=== PATIENT | male | born 1965 | race African-American/Black ===

== ENCOUNTER 2019-09-07 01:08 | Emergency (ER) | payer OTHER, SELFPAY ==
[2019-09-07 01:14] VITALS: BP 160/93; PULSE 72; RESP 18; TEMP 36.9; O2SAT 100
--- NOTE | 2019-09-07 01:41 | ED.BACK ---
HPI - Back Pain/Injury General Chief Complaint: Back Pain/Injury Stated Complaint: lumbar pain Time Seen by Provider: 09/07/19 01:36 Source: patient and RN notes reviewed Mode of arrival: ambulatory Limitations: no limitations History of Present Illness HPI Narrative: Pt is a 54 y/o male who presents to the ED with c/o lower left-sided back pain that radiates to his LLE which began at 1430 this afternoon. Pt states the pain began while he was at work. Pt denies any recent heavy lifting, falls, or trauma to the area which could be causing his pain. Pt reports taking Aleve to try to alleviate his pain, without any relief. He reports he has had similar episodes in the past due to a -related injury, but has not had a formal diagnosis. Pt denies pain anywhere else in his body. MD elicited complaint: back pain (lower left-sided) Pertinent past history: prior back pain Onset (ago): hour(s) (1430 this afternoon) Timing: constant Similar Symptoms Previously: Yes Location: left lower back Radiation: left upper leg Exacerbating factors: none Relieving factors: none (tried Aleve without relief of his symptoms) Context: other (no recent trauma, falls, or heavy lifting) Associated symptoms: denies other symptoms Related Data Home Medications Medication Instructions Recorded Confirmed albuterol sulfate INHALATION 08/18/19 amlodipine 08/18/19 aspirin 08/18/19 duloxetine [Cymbalta] mg PO 08/18/19 losartan 08/18/19 methocarbamol 750 mg PO DAILY 08/18/19 08/18/19 Allergies Allergy/AdvReac Type Severity Reaction Status Date / Time niacin Allergy Intermediate Itching Verified 08/18/19 10:56 Review of Systems Review of Systems: All systems reviewed & are unremarkable except as noted in HPI and below Constitutional: Constitutional: Denies other (pain anywhere else in his body) Musculoskeletal: Musculoskeletal: Reports back pain (lower left-sided back pain which radiates to his LLE) [facility] Past Medical History Medical History (Updated 09/07/19 @ 03:40 by Carlo Hong MD) Arthritis Asthma Hyperlipidemia Hypertension Social History Social History (Updated 09/07/19 @ 01:54 by Susan Gaitan) Smoking status: Never smoker Gender identity (if verbalized by the patient): Male Exam Narrative: Exam Narrative: Constitutional: Healthy appearing, no acute distress, well nourished. HENMT: Lips normal, moist mucous membranes. Eyes: Conjunctive normal, PERRL Resp: Normal respiratory effect, clear to auscultation bilaterally. Cardio: Regular rate, rhythm, no murmurs. GI: Soft, non-tender, normal bowel sounds. Back/Spine/Pelvis: Full ROM Skin: Normal color, dry skin, warm Neuro: Oriented x 3, alert, normal speech Extremities: Full ROM. Pain to lower back with left hip flexion. Psych: Mental status grossly normal, normal affect. Course Vital Signs Vital signs: Vital Signs Temperature 36.9 C 09/07/19 01:14 Pulse Rate 72 09/07/19 01:14 Respiratory Rate 18 09/07/19 01:14 Blood Pressure 160/93 H 09/07/19 01:14 Pulse Oximetry 100 09/07/19 01:14 Temperature 36.9 C 09/07/19 01:14 Pulse Rate 79 09/07/19 03:39 Respiratory Rate 18 09/07/19 03:39 Blood Pressure 145/82 H 09/07/19 03:39 Pulse Oximetry 99 09/07/19 03:39 MDM - Back Pain/Injury MDM Narrative Medical decision making narrative: This is the same as his chronic pain. He has no traumatic mechanism and no red flag symptoms to suggest more emergent causes requiring imaging. Differential Diagnosis Differential diagnosis: Likely sciatica and strain of lumbar region Medical Records Attestation: I reviewed the patient's medical records. Discharge Plan Discharge Clinical Impression: Sciatica Qualifiers: Laterality: left Qualified Code(s): M54.32 - Sciatica, left side Patient Disposition: Home, Self-Care Condition: Stable Instructions: Sciatica (ED) Prescriptions: New cyclobenzaprine 10 mg tablet 10 mg
[2019-09-07 02:08] VITALS: BP 152/91; PULSE 75; RESP 18; O2SAT 99
[2019-09-07] MEDS: KETOROLAC (*BKC) 60 MG/2 ML VIAL IM (02:50)
[2019-09-07 03:39] VITALS: BP 145/82; PULSE 79; RESP 18; O2SAT 99
--- NOTE | 2019-09-07 03:39 | PC.NURSE ---
this rn went into room to assess updated pain score. pt states well im not moving right now so. this rn states so right now you arent in any pain? pt states yes, but i know i will be if i try to get up and walk. notified.
== END 2019-09-07 03:57 | disposition home or self-care (01) ==
PROVIDERS: Emergency Provider Emergency Medicine
DX: M54.32 Sciatica, left side (principal); M19.90 Unspecified osteoarthritis, unspecified site; J45.909 Unspecified asthma, uncomplicated; E78.5 Hyperlipidemia, unspecified; I10 Essential (primary) hypertension
CPT/HCPCS: 96372; 99284; J1885; J3360

== ENCOUNTER 2020-03-03 15:03 | Outpatient (CLI) | payer OTHER, SELFPAY ==
--- NOTE | ~2020-03-03 | US_ITS ---
EXAMINATION:US venous doppler LE LT INDICATION:Left knee and calf pain TECHNIQUE: Multiple grayscale, color flow and Doppler images of the left lower extremity deep venous systems were obtained and reviewed. COMPARISON:No prior studies for comparison. FINDINGS: The common femoral, superficial femoral and popliteal veins demonstrate normal respiratory variation, augmentation and compressibility. Color flow is also seen within the posterior tibial, pe roneal, greater saphenous and profunda veins. IMPRESSION: 1: No lower extremity deep venous thrombosis. Reviewed, dictated and finalized at location A.
== END 2020-03-03 15:04 | disposition home or self-care (01) ==
PROVIDERS: Visit Provider Internal Medicine
DX: M25.562 Pain in left knee (principal)
CPT/HCPCS: 93971

== ENCOUNTER 2020-04-23 08:04 | Outpatient (CLI) | payer OTHER, SELFPAY ==
--- NOTE | ~2020-04-23 | MR_ITS ---
EXAMINATION: MR knee LT wo con DATE: 04/23/2020 08:52 INDICATION: Left knee pain. Left knee bursitis. TECHNIQUE: Magnetic resonance imaging (MRI) of the left knee was performed without intravenous contra st. Sequences included axial PD-weighted FS FSE, coronal PD-weighted FSE and PD-weighted FS FSE, sagi ttal PD-weighted FSE, and sagittal T2-weighted FS FSE. COMPARISON: None. FINDINGS: Medial compartment: Medial meniscus is normal. There is shallow partial-thickness cartilage loss of femoral condyle invol ving the lateral articular surface. Tibial cartilage is normal. There are marginal osteophytes. Lateral compartment: Lateral meniscus is normal. Lateral compartment cartilage is normal. Patellofemoral compartment: There is shallow partial-thickness cartilage loss of patellar medial facet and deep partial thickness cartilage loss of patellar median ridge. There is deep partial thickness cartilage loss of central t rochlea and shallow partial-thickness cartilage loss of medial and lateral trochlea. Marginal osteoph ytes are noted. Ligaments and tendons: The anterior and posterior cruciate ligaments are normal. Medial collateral ligament is normal. There are changes of prior sprain of fibular collateral ligament characterized increased signal intensity proximally. There is mild patellar tendinopathy. Fluid: There is a small knee joint effusion. There is trace fluid in a Banks's cyst. There is superficial in frapatellar bursitis with 3.7 x 2.4 x 0.9 cm fluid collection with fluid/fluid level. IMPRESSION: 1. Moderate chondrosis of patellofemoral compartment and mild chondrosis of medial compartment. 2. Small knee joint effusion. 3. Superficial infrapatellar bursitis. Reviewed, dictated and finalized at location A. IMPRESSION: 1. Moderate chondrosis of patellofemoral compartment and mild chondrosis of med ial compartment. 2. Small knee joint effusion. 3. Superficial infrapatellar bursitis.
== END 2020-04-23 08:05 | disposition home or self-care (01) ==
PROVIDERS: Visit Provider Internal Medicine
DX: M25.562 Pain in left knee (principal); M70.52 Other bursitis of knee, left knee; M25.462 Effusion, left knee
CPT/HCPCS: 73721

== ENCOUNTER 2024-02-11 13:25 | Outpatient (CLI) | payer OTHER, MEDICARE, SELFPAY ==
--- NOTE | ~2024-02-11 | XR_ITS ---
XR shoulder RT min 2V 02/11/2024 13:53 Indication: Right shoulder pain Procedure: 4 views right shoulder Comparison: No prior studies for comparison. Findings: There is irregular lucency of the glenoid process, suspicious for nondisplaced fracture. Th ere is mild osteoarthritis of the acromioclavicular joint. Impression: 1: Possible nondisplaced glenoid process fracture. Recommend correlation with CT of the shoulder. Reviewed, dictated and finalized at location B. Impression: 1: Possible nondisplaced glenoid process fracture. Recommend correlation with C T of the shoulder.
== END 2024-02-11 13:26 | disposition home or self-care (01) ==
PROVIDERS: PCP Nurse Practitioner Family; Visit Provider Orthopaedic Surgery
DX: R52 Pain, unspecified (principal)
CPT/HCPCS: 73030

== ENCOUNTER 2024-02-20 09:40 | Outpatient (CLI) | payer OTHER, MEDICARE, SELFPAY ==
--- NOTE | ~2024-02-20 | MR_ITS ---
MRI of the right shoulder Technique: Axial proton-density fat-sat images, coronal proton density fat-sat and T2 fat-sat images, and sagittal T1-weighted and T2 fat-sat images were acquired. Clinical History: Shoulder lesion, pain Findings: There is advanced AC joint degenerative change, with productive change of the acromion and distal clavicle. Subacromial spur present. Coracoclavicular, coracoacromial, and coracohumeral ligame nts are intact. There is high-grade bursal surface partial tearing of the posterior to central aspect of the distal s upraspinatus tendon, with the area of tearing measuring approximately 1.5 x 2.1 cm in extent. There i s probably focally full-thickness tearing in some areas of the lesion. Infraspinatus tendon is intact without definite partial or full-thickness tear. Subscapularis tendon is intact with mild tendinosis . Tendon of long head of the biceps is intact. No labral tear identified. Inferior glenohumeral ligament is intact. No degenerative change or effusion of the glenohumeral join t. No significant fluid distention of the subacromial/subdeltoid bursa. No muscle atrophy or edema. Impression: 1.5 x 2.1 cm area of high-grade bursal surface tearing of the distal supraspinatus tendon, as detaile d above, with probable focal full-thickness tearing involving some regions of the lesion. Advanced AC joint degenerative change. Reviewed, dictated and finalized at [facility]. Impression: 1.5 x 2.1 cm area of high-grade bursal surface tearing of the distal supraspina tus tendon, as detailed above, with probable focal full-thickness tearing invol ving some regions of the lesion. Advanced AC joint degenerative change.
== END 2024-02-20 09:41 ==
PROVIDERS: PCP Orthopaedic Surgery; Visit Provider Orthopaedic Surgery
DX: M19.011 Primary osteoarthritis, right shoulder (principal)
CPT/HCPCS: 73221

== ENCOUNTER 2024-06-08 07:41 | Outpatient (CLI) | payer OTHER, MEDICARE, SELFPAY ==
--- NOTE | 2024-06-08 07:55 | ECG_ITS ---
Test Date: 2024-06-08 08:18:38 Measurements Intervals [place] Rate: 73 P: 6 CO: 188 QRS: -26 QRSD: 88 T: 37 QT: 359 QTc: 396 Interpretive Statements SINUS RHYTHM BORDERLINE R WAVE PROGRESSION, ANTERIOR LEADS BORDERLINE T WAVE ABNORMALITY- INF/HIGH LAT LEADS BASELINE ARTIFACT- I, II, III, AVR, AVL, AVF, V1-V2, V4-V6 BORDERLINE ECG No previous ECG available for comparison Electronically Signed On 06-08-2024 08:41:[address] by Renato Neville D.O.
[2024-06-08 10:15] LABS: Anion Gap 12 mmol/L (4-12); Blood Urea Nitrogen 15 mg/dL (9-20); Calcium 9.6 mg/dL (8.4-10.2); Carbon Dioxide 30 mmol/L (22-30); Chloride 101 mmol/L (98-107); Estimated Glomerular Filt Rate > 60; Glucose 93 mg/dL (65-110); Potassium 3.5 mmol/L (3.4-5.0); Sodium 143 mmol/L (137-145)
== END 2024-06-08 07:42 | disposition home or self-care (01) ==
PROVIDERS: Anesthesiology; Visit Provider Orthopaedic Surgery
DX: E11.9 Type 2 diabetes mellitus without complications (principal); I10 Essential (primary) hypertension; Z01.818 Encounter for other preprocedural examination
CPT/HCPCS: 36415; 80048; 93005

== ENCOUNTER 2024-06-15 03:06 | Day surgery (SDC) | payer OTHER, MEDICARE, SELFPAY ==
[2024-06-05 08:58] VITALS: BMI 29.7
--- NOTE | 2024-06-05 09:07 | PC.NURSE ---
Report to the Outpatient Waiting Room, entrance under the green pavilion located off [facility], at time _0800_ on date _[id number]_. Planned Procedure Time: _1000_.? Time changes happen often and if your time is changed the preop area will call you the afternoon before. - You and your visitor will be asked to self-screen and do not enter if you have any COVID symptoms. Please call surgeon if you need to reschedule. - A mask is optional within the hospital at this time. Patients may have clear liquids (water, carbonated beverages, clear teas, apple juice) until 3 hours prior to surgery with a maximum of 20 ounces. - No food from midnight until time of surgery and no smoking Take only the following medications with a SIP of water on the morning of surgery: __Amlodipine, Duloxetine, Gabapentin and if needed may use Albuterol inhaler.____ DO NOT STOP ANY OF YOUR OTHER PRESCRIPTION MEDICATIONS PRIOR TO SURGERY EXCEPT THE FOLLOWING Medications to discontinue per physician ____Aspirin Date to take last qenh__[phone]___ Please no make-up, nail armenian, hairspray, perfume, deodorant, or body powder the day of surgery.? No jewelry (including any body piercings) or valuables the day of surgery, leave them at home.? Please take a shower or bath the night before, or the morning of, surgery with an antibacterial soap.? Wear comfortable, loose fitting clothing.? - Jewelry must be removed prior to entering the operating room.? Rings and piercings that are not removed may be cut off. - The hospital will not accept responsibility for valuables.? - Please leave all valuables, including medications, at home the day of surgery. If you are going home after surgery, a licensed entry level truck driver must drive you home.? - NO public transportation without another adult if you receive anesthesia. - We recommend that an adult stay with you for 24 hours following discharge. - We also recommend that you do not drive, make important decision, drink alcoholic beverages, or take any drugs that were not prescribed by your health care provider for at least 24 hours after your discharge time. Follow any additional instructions given to you from your surgeon. Telephone instructions given to _Adonis__and asked if any additional questions and then verbalized understanding. Patient advised to call surgeon office or pre surgery nurse liaison [phone] if any additional questions.
--- NOTE | 2024-06-11 07:41 | P.HP_ITS ---
H&P: HPI History of Present Illness Date/Time: 06/11/24 07:41 Chief Complaint: Patient has chronic shoulder pain right. He has failed conservative treatment and would like to consider surgical intervention. He has had anti-inflammatory medication prednisone pills, and cortisone injections, physical therapy, and time. He has pain with overhead motion is weak in abduction external rotation. He would like to proceed with arthroscopy shoulder open distal clavicle excision rotator cuff debridement repair. Review of Systems Musculoskeletal: Musculoskeletal: Reports arthralgias, Reports joint swelling and Reports stiffness [facility] Past Medical History Medical History Arthritis Asthma Hernia Hyperlipidemia Hypertension Trigger finger Surgical History Surgical History H/O knee surgery H/O shoulder surgery History of bunionectomy Family History Family History (Updated 05/26/24 @ 08:56 by Yana Paz CMA) Father Hypertension Hyperlipidemia Mother Diabetes mellitus Hypertension Heart disease CKD (chronic kidney disease) DVT (deep vein thrombosis) in Sibling Hypertension Heart disease Social History Social History (Updated 05/26/24 @ 08:43 by Thelma Treviño CMA) Smoking status: Never smoker Second hand tobacco smoke exposure: Yes Alcohol intake: current Substance use: current Substance use type: marijuana Other substance usage details: Daily Do You Feel Safe in your Home?: Yes Lack of Transportation: No Lack of Food: Never True Current Housing: I Have Housing Concerned About Future Housing: No Difficulty Paying Gas/Electric Bills: No Difficulty Paying for Meds: No Currently Unemployed: No Education: High School Diploma/GED Difficulty w/ Childcare or Family Care: No Living arrangements: with family Occupation/Education: retired Additional occupation/education comments: Retired [employer], [employer]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 Gender identity (if verbalized by the patient): Male Spiritual care concerns: No Meds Home Medications and Allergies Home Medications Medication Instructions Recorded Confirmed Type albuterol sulfate 90 mcg/actuation 2 inh inhalation QID PRN Dyspnea 08/18/19 06/05/24 History aerosol inhaler amlodipine 10 mg tablet 10 mg PO DAILY 08/18/19 06/05/24 History aspirin 81 mg chewable tablet 81 mg PO DAILY 08/18/19 06/05/24 History duloxetine 20 mg capsule,delayed 20 mg PO DAILY 08/18/19 06/05/24 History release (Cymbalta) gabapentin 100 mg capsule 100 mg PO BID 05/26/24 06/05/24 History empagliflozin 5 mg-metformin ER 2 tablet PO DAILY 06/05/24 06/05/24 History 1,000 mg tablet,extended release 24 hr (Synjardy XR) losartan 100 mg tablet 100 mg PO DAILY 06/05/24 06/05/24 History semaglutide 0.25 mg or 0.5 mg (2 0.25 mg subcut WEEKLY 06/05/24 06/05/24 History mg/3 mL) subcutaneous pen injector (Ozempic) tadalafil 20 mg tablet 20 mg PO WEEKLY 06/05/24 06/05/24 History Allergies Allergy/AdvReac Type Severity Reaction Status Date / Time niacin Allergy Intermediate Itching Verified 06/05/24 08:54 lisinopril AdvReac Intermediate Cough Verified 06/05/24 08:54 Exam Narrative: On exam he has difficulty raising his arm above the horizontal. He is weak in abduction external rotation and has give-way. Neurologically he is intact. He has pain and with impingement. Neurologically appears to be grossly intact. Radiology Reports: Comments: Patient: Adonis Busby MRI of the right shoulder Technique: Axial proton-density fat-sat images, coronal proton density fat-sat and T2 fat-sat images, and sagittal T1-weighted and T2 fat-sat images were acquired. Clinical History: Shoulder lesion, pain Findings: There is advanced AC joint degenerative change, with productive change of the acromion and distal clavicle. Subacromial spur present. Coracoclavicular, coracoacromial, and coracohumeral ligaments are intact. There is high-grade bursal surface partial tearing of the posterior to central aspect of the distal supraspinatus tendon, with the area of tearing measuring approximately 1.5 x 2.1 cm in extent. There is probably focally full-thickness tearing in some areas of the lesion. Infraspinatus tendon is intact without definite partial or full-thickness tear. Subscapularis tendon is intact with mild tendinosis. Tendon of long head of the biceps is intact. No labral tear identified. Inferior glenohumeral ligament is intact. No degenerative change or effusion of the glenohumeral joint. No significant fluid distention of the subacromial/subdeltoid bursa. No muscle atrophy or edema. Impression: 1.5 x 2.1 cm area of high-grade bursal s urface tearing of the distal sup raspinatus tendon, as detailed above, with probable focal full-thickness tearing involving some regions of the lesion. Advanced AC joint degenerative change. Reviewed, dictated and finalized at location M. Knee MRI 04/23/20 Shoulder X-Ray 02/11/24 Shoulder MRI 02/21/24 Assessment and Plan Assessment and plan (1) Rotator cuff tear, right: Code(s): M75.101 - Unspecified rotator cuff tear or rupture of right shoulder, not specified as traumatic Status: Acute Assessment and Plan: Patient has rotator cuff tear right and acromioclavicular arthritis. He has failed conservative treatment and would like to consider surgical intervention. I have discussed this with him at length risks benefits limitations and alternatives. Will proceed with arthroscopy shoulder open distal clavicle excision rotator cuff debridement repair proceed as indicated. (2) Acromioclavicular arthrosis: Code(s): M19.019 - Primary osteoarthritis, unspecified shoulder Status: Acute
[2024-06-15] VITALS (8 sets, daily range): BP systolic 127–143; BP diastolic 83–90; PULSE 70–92; RESP 16–20; TEMP 36–36.4; O2SAT 97–100; BMI 30.2
[2024-06-15 08:23] LABS: Glucose Point of Care 95 mg/dl (65-105)
[2024-06-15] MEDS: LACTATED RINGERS 1,000 ML 30 ML IV CONT ×2 (08:45→12:03)
[2024-06-15] MEDS: ACETAMINOPHEN 500 MG TABLET 1000 MG PO (08:45)
[2024-06-15] MEDS: KETOROLAC 15 MG/ML VIAL (*BKC) IV PUSH (08:45)
--- NOTE | 2024-06-15 09:21 | WPDHPUPDATE1 ---
History and Physical Update Update Date/Time: 06/15/24 09:21 History and Physical has been reviewed, including an updated exam of the patient. There are NO changes in the patient's condition. Risks, benefits, and alternatives have been discussed and questions answered. Patient agrees to proceed with procedure.
--- NOTE | 2024-06-15 10:04 | P.PNAN_ITS ---
Anes - Initial Pre Proc Eval Procedure: Operation Date: 06/15/24 10:00 Proposed Procedures p Right Shoulder Arthroscopy with Open Rotator Cuff Repair, Distal Clavicle Excision - Andi Pena MD Date/Time: 06/15/24 10:04 Surgeon: Andi Pena MD Pre Op Diagnosis: Right Rot Cuff Tear, AC Arthritis Patient Data Age: 59 Gender: M Height: 1.73 m Weight: 90.1 kg Last Vital Signs Temp 97.5 F L 06/15/24 08:30 Pulse 75 06/15/24 08:30 BP 127/83 06/15/24 08:30 Pulse Ox 100 06/15/24 08:30 O2 Del Method Room Air 06/15/24 08:30 Allergies Allergy/AdvReac Type Severity Reaction Status Date / Time niacin Allergy Intermediate Itching Verified 06/15/24 09:08 lisinopril AdvReac Intermediate Cough Verified 06/15/24 09:08 Home Medications Medication Instructions Recorded Confirmed Type albuterol sulfate 90 mcg/actuation 2 inh inhalation QID PRN Dyspnea 08/18/19 06/05/24 History aerosol inhaler amlodipine 10 mg tablet 10 mg PO DAILY 08/18/19 06/05/24 History aspirin 81 mg chewable tablet 81 mg PO DAILY 08/18/19 06/15/24 History duloxetine 20 mg capsule,delayed 20 mg PO DAILY 08/18/19 06/05/24 History release (Cymbalta) gabapentin 100 mg capsule 100 mg PO BID 05/26/24 06/05/24 History empagliflozin 5 mg-metformin ER 2 tablet PO DAILY 06/05/24 06/05/24 History 1,000 mg tablet,extended release 24 hr (Synjardy XR) losartan 100 mg tablet 100 mg PO DAILY 06/05/24 06/05/24 History semaglutide 0.25 mg or 0.5 mg (2 0.25 mg subcut WEEKLY 06/05/24 06/15/24 History mg/3 mL) subcutaneous pen injector (Ozempic) tadalafil 20 mg tablet 20 mg PO WEEKLY 06/05/24 06/15/24 History Laboratory Tests 06/15/24 08:17 POC Capillary Glucose 95 mg/dl (65-105) Patient hx anesthesia problems: none Family hx anesthesia problems: none Results Review: All pre-operative results and documents have been reviewed as part of the pre- operative evaluation. [facility] Past Medical History Medical History Arthritis Asthma Hernia Hyperlipidemia Hypertension Trigger finger Surgical History Surgical History H/O knee surgery H/O shoulder surgery History of bunionectomy Family History Family History Father Hypertension Hyperlipidemia Mother Diabetes mellitus Hypertension Heart disease CKD (chronic kidney disease) DVT (deep vein thrombosis) in Sibling Hypertension Heart disease Social History Social History (Updated 05/26/24 @ 08:43 by Thelma Treviño [facility]) Smoking status: Never smoker Second hand tobacco smoke exposure: Yes Alcohol intake: current Substance use: current Substance use type: marijuana Other substance usage details: Daily Do You Feel Safe in your Home?: Yes Lack of Transportation: No Lack of Food: Never True Current Housing: I Have Housing Concerned About Future Housing: No Difficulty Paying Gas/Electric Bills: No Difficulty Paying for Meds: No Currently Unemployed: No Education: High School Diploma/GED Difficulty w/ Childcare or Family Care: No Living arrangements: with family Occupation/Education: retired Additional occupation/education comments: Retired [employer], substitute crossing guard civilian Gender identity (if verbalized by the patient): Male Spiritual care concerns: No Anes - Eval Final PreProcedure Day of Procedure 06/15/24 10:04 Patient weight: overweight Heart: regular rate and rhythm Lungs: clear to auscultation Airway: Mallampati scale class II Neurological: alert and oriented Last oral intake: >/= 8 hours ASA classification: III Emergent: no Anesthetic plan: proceed Anesthesia type and monitoring: general ETT and standard monitoring Results Review: All pre-operative results and documents have been reviewed as part of the pre- operative evaluation. HTN, hyperlipidemia, EN on CPAP. Informed Consent: The patient's anesthetic plan and its attendant risks and benefits were discussed with the patient/family/POA. Questions were solicited and answers provided to the satisfaction of the patient/family/POA.
--- NOTE | 2024-06-15 10:17 | WPDANESPNB ---
Anes - Peripheral Nerve Block Date/Time: 06/15/24 10:17 I have discussed with the patient/family/POA the placement of a peripheral nerve block for post-operative pain management, including associated risks, benefits, complications, and side effects. Alternative methods of post-operative analgesia were detailed. Questions were solicited and answers provided to the satisfaction of the patient/family/POA. Time-Out: A pre-procedural Time-Out was completed immediately before starting the procedure and confirmed: Patient Identification, Site, Procedure, Patient Position and the Availability of Requisite Equipment. Clinical Indications: Acute post-operative pain management requested by the operative surgeon. Nerve Block Insertion Note Anes-nerve block: interscalene right Patient position: supine Skin prep: chlorhexidine Needle: 22 gauge, stimulating, insulated echogenic needle. Needle length: 80 mm Technique: ultrasound Injectate: other (Bupiv 0.5% 15 mls. ) Observations: tolerated well Complications: none Procedure start time:: 1010 Procedure end time:: 1014
[2024-06-15] MEDS: ceFAZolin 2 GM/D5W 50 ML 2 GM/50 ML BAG IVPB (10:37)
[2024-06-15] MEDS: LIDO 1%/EPINEPHRINE 1:100,000 20 ML VIAL INFILTRATE (10:55)
--- NOTE | 2024-06-15 11:34 | P.OP_ITS ---
Procedure Note - Detailed Date of Procedure 06/15/24 Pre-op Diagnosis Right Rotator Cuff Tear, A/C Arthritis Post-op Diagnosis Same Procedure Performed Rotator cuff repair, distal clavicle excision Surgeon Andi Pena MD [employer] [facility] Olmos Anesthesia General Description of Procedure Patient brought to the operative room #8. A general anesthetic was administered. The patient was placed in the beach chair position with the RIGHT shoulder exposed.? After sterile prep and drape, standard posterior and lateral portals were used for arthroscopy. The joint itself looked reasonably good the biceps tendon was intact.? There was a large quarter size tear of the rotator cuff area in the supraspinatus and infraspinatus regions. This was gently debrided.? The subacromial space had an intense bursa, this was debrided with a shaver and acromioplasty performed arthroscopically.? The subacromial space was quite tight initially. I then proceeded to open the shoulder. A longitudinal incision made from the AC joint distalward over the shoulder.? Dissection carried down to the fascia. The fascia overlying the acromioclavicular joint was split. The AC joint found and a distal clavicle excision performed removing 3 to 4 millimeters of bone.? The edges beveled.? The deltoid was then split from the tip of the acromion. The remainder of the bursa was debrided.? The rotator cuff was torn in the supraspinatus and infraspinatus insertions. This was debrided and repaired to bone using #2 Ethibond suture.? At this point the deltoid was repaired to itself,the acromion and the trapezius using #2 Ethibond. The skin was closed with 2-0 Vicryl and madina.? Sterile dressing applied patient tolerated well left the operating room satisfactory condition. Estimated Blood Loss 50 Drains No Packing No Pathology None sent Complications No immediate complications Condition Stable Disposition PACU [facility] Billing Surgery - Charge Forward: Surgery Billing ([id number] RTC Repair [id number] DCE)
[2024-06-15 12:40] LABS: Glucose Point of Care 96 mg/dl (65-105)
== END 2024-06-15 13:45 | disposition home or self-care (01) ==
PROVIDERS: Visit Provider Orthopaedic Surgery
PROC: (CPT 29805; principal; 2024-06-15 10:00)
DX: M75.101 Unspecified rotator cuff tear or rupture of right shoulder, not specified as traumatic (principal); M19.011 Primary osteoarthritis, right shoulder; G89.18 Other acute postprocedural pain; I10 Essential (primary) hypertension; E78.5 Hyperlipidemia, unspecified; J45.909 Unspecified asthma, uncomplicated; F12.90 Cannabis use, unspecified, uncomplicated; Z79.51 Long term (current) use of inhaled steroids; Z79.82 Long term (current) use of aspirin; Z79.84 Long term (current) use of oral hypoglycemic drugs; Z79.85 Long-term (current) use of injectable non-insulin antidiabetic drugs
CPT/HCPCS: 23412; 23120; 64415; 82948; A4565; A9270; J0690; J1100; J1885; J2003; J2004; J2250; J2270; J2405; J2704; J3010; J7120

== ENCOUNTER 2025-05-12 10:11 | Emergency (ER) | payer OTHER, MEDICARE, SELFPAY ==
[2025-05-12 10:19] VITALS: BP 158/75; PULSE 65; RESP 16; TEMP 36.7; O2SAT 98
--- NOTE | 2025-05-12 10:37 | ED.SKABFB ---
HPI - Skin/Abscess/Foreign Bdy General Chief complaint: Skin/Abscess/Foreign Body Stated complaint: itchy spots on skin Time Seen by Provider: 05/12/25 10:28 Source: patient and RN notes reviewed Mode of arrival: ambulatory Limitations: no limitations History of Present Illness HPI narrative: 60-year-old male patient presents today with a 2 week history of severely pruritic lesion to his left forearm and right lower leg. Denies pain. Unsure of etiology. He has tried OTC itch cream without improvement. He has been working outside in his garden. Related Data Home Medications ?Medication ?Instructions ?Recorded ?Confirmed ?Last Taken ?Type amlodipine 10 mg tablet 10 mg PO DAILY 08/18/19 01/05/25 06/15/24 History aspirin 81 mg chewable tablet 81 mg PO DAILY 08/18/19 01/05/25 2 Weeks Ago History ~06/01/24 duloxetine 20 mg capsule,delayed 20 mg PO DAILY 08/18/19 01/05/25 06/15/24 History release (Cymbalta) gabapentin 100 mg capsule 100 mg PO BID 05/26/24 01/05/25 06/15/24 History empagliflozin 5 mg-metformin ER 2 tablet PO DAILY 06/05/24 01/05/25 06/14/24 History 1,000 mg tablet,extended release 24 hr (Synjardy XR) losartan 100 mg tablet 100 mg PO DAILY 06/05/24 01/05/25 06/14/24 History semaglutide 0.25 mg or 0.5 mg (2 0.25 mg subcut WEEKLY 06/05/24 01/05/25 06/14/24 History mg/3 mL) subcutaneous pen injector (Ozempic) tadalafil 20 mg tablet 20 mg PO WEEKLY 06/05/24 01/05/25 1 Month Ago History ~05/15/24 azelastine 137 mcg (0.1 %) nasal intranasal 05/12/25 Unknown History spray cetirizine 10 mg tablet mg 05/12/25 Unknown History fluticasone propionate 93 intranasal 05/12/25 Unknown History mcg/actuation breath activated aerosol (Xhance) Allergies Allergy/AdvReac Type Severity Reaction Status Date / Time niacin Allergy Intermediate Itching Verified 05/12/25 10:23 lisinopril AdvReac Intermediate Cough Verified 05/12/25 10:23 PMFSH Past Medical History Medical History Trigger finger Hernia Hyperlipidemia Asthma Arthritis Hypertension Surgical History Surgical History History of vasectomy H/O shoulder surgery H/O knee surgery History of bunionectomy Family History Family History Father Hypertension Hyperlipidemia Mother Diabetes mellitus Hypertension Heart disease CKD (chronic kidney disease) DVT (deep vein thrombosis) in Sibling Hypertension Heart disease Social History Social History Smoking status: Never smoker Second hand tobacco smoke exposure: Yes Alcohol intake: former Substance use: current Substance use type: marijuana Other substance usage details: Daily Do You Feel Safe in your Home?: Yes Lack of Transportation: No Lack of Food: Never True Current Housing: I Have Housing Concerned About Future Housing: No Difficulty Paying Gas/Electric Bills: No Difficulty Paying for Meds: No Currently Unemployed: No Education: High School Diploma/GED Difficulty w/ Childcare or Family Care: No Living arrangements: with family Occupation/Education: retired Additional occupation/education comments: Retired [employer], supervisory lifeguard civilian Gender identity (if verbalized by the patient): Male Spiritual care concerns: No Comments At time of signature, I have reviewed and agree with nursing past medical, surgical, social and family history unless otherwise noted. Please see nursing chart for further information. There is no relevant family history pertinent to the presenting complaint Exam Narrative: GENERAL: Well-appearing, well-nourished, and in no acute distress. HEAD: Normocephalic, atraumatic. EYES: EOMI. No redness or drainage. Conjunctivae normal. ENT: Mucous membranes pink and moist. NECK: Normal AROM. CHEST: No respiratory distress. EXTREMITIES: Normal range of motion. No edema. SKIN: Warm, dry, no rash. Capillary refill normal. Normal skin turgor. Each lesion measuring 0.5cm round, mostly flat, hypopigmented. Keratinized. No erythema, edema, fluctuance. 1 lesion to left forearm and 1 to the right anterior lower leg. Nontender. NEURO: No focal deficits. Alert and oriented x3. Gait steady. PSYCH: Normal affect. No signs of depression or anxiety. Course Course Level of Care: Express Care Visit Vital Signs Vital signs: Vital Signs Temperature 98.1 F 05/12/25 10:19 Pulse Rate 65 05/12/25 10:19 Respiratory Rate 16 05/12/25 10:19 Blood Pressure 158/75 H 05/12/25 10:19 Pulse Oximetry 98 05/12/25 10:19 Oxygen Delivery Room Air 05/12/25 10:19 Temperature 98.1 F 05/12/25 10:19 Pulse Rate 65 05/12/25 10:19 Respiratory Rate 16 05/12/25 10:19 Blood Pressure 158/75 H 05/12/25 10:19 Pulse Oximetry 98 05/12/25 10:19 Oxygen Delivery Room Air 05/12/25 10:19 Reviewed MDM - Skin/Abscess/Foreign Bdy MDM Narrative Medical decision making narrative: 60-year-old male patient presents today with a 2 week history of severely pruritic lesion to his left forearm and right lower leg. Denies pain. Unsure of etiology. He has tried OTC itch cream without improvement. Upon exam, Each lesion measuring 0.5cm round, mostly flat, hypopigmented. Keratinized. No erythema, edema, fluctuance. Lesions consistent with insect bites that may have broken blood vessels and caused a small blister, which is now healing over. No signs of infection. Will prescribed 2.5% hydrocortisone cream to help with the itching. Instructed patient to let lesions continue to heal, which may take some additional time. Agrees with plan. VSS. Differential Diagnosis Differential diagnosis: Likely abscess of skin or subcutaneous tissue, dermatophytosis, urticaria, cellulitis, insect bites, impetigo and contact dermatitis Critical Care Time Critical Care Time Critical Care Time: No Discharge Plan Discharge Clinical Impression: Insect bite Patient Disposition: Home Condition: Stable Instructions: Insect Bite or Sting (ED) Additional Instructions: Your lesions are likely due to insect bites. Please use the steroid cream as directed. Monitor for any signs of infection such as redness, swelling, pain, and see your doctor if you note any. Patient Language: Mauritian Prescriptions: New hydrocortisone 2.5 % cream 1 applic topical BID PRN (Reason: itching) Qty: 30 0RF No Action amlodipine 10 mg Tablet 10 mg PO DAILY aspirin 81 mg Tablet,Chewable 81 mg PO DAILY duloxetine [Cymbalta] 20 mg Capsule,Delayed Release(Dr/Ec) 20 mg PO DAILY cetirizine 10 mg tablet azelastine 137 mcg (0.1 %) spray,non-aerosol INTRANASAL Xhance 93 mcg/actuation aerosol breath activated INTRANASAL gabapentin 100 mg capsule 100 mg PO BID losartan 100 mg Tablet 100 mg PO DAILY Synjardy XR 5-1,000 mg tablet, IR - ER, biphasic 24hr 2 tablet PO DAILY tadalafil 20 mg Tablet 20 mg PO WEEKLY Ozempic 0.25 mg or 0.5 mg (2 mg/3 mL) pen injector 0.25 mg SUBCUT WEEKLY Rx Instructions: Saturday Follow-up/Referrals: Tiana,Frances [Other] Time of Disposition: 10:42
== END 2025-05-12 10:48 | disposition home or self-care (01) ==
PROVIDERS: Emergency Provider Nurse Practitioner
DX: S50.862A Insect bite (nonvenomous) of left forearm, initial encounter (principal); S80.861A Insect bite (nonvenomous), right lower leg, initial encounter; W57.XXXA Bitten or stung by nonvenomous insect and other nonvenomous arthropods, initial encounter; F12.90 Cannabis use, unspecified, uncomplicated; I10 Essential (primary) hypertension; E78.5 Hyperlipidemia, unspecified; J45.909 Unspecified asthma, uncomplicated; M19.90 Unspecified osteoarthritis, unspecified site; Z98.52 Vasectomy status; Z79.82 Long term (current) use of aspirin
CPT/HCPCS: 99213; G0463